=== PATIENT | male | born 1975 | race Caucasian/White ===

== ENCOUNTER 2019-11-27 09:14 | Emergency (ER) | payer SELFPAY ==
[~2019-11-27] VITALS: Ht 162.6 cm; Wt 85.7 kg
[2019-11-27 09:18] VITALS: BP 129/90
--- NOTE | 2019-11-27 09:26 | NUR ---
WAIT AT LOBBY. HANDED ON URINE CUP.
--- NOTE | 2019-11-27 10:05 | NUR ---
PT AMBULATED TO BED 8.
--- NOTE | 2019-11-27 10:11 | NUR ---
44 Y/O MALE C/O CHEST PAIN RADIATING TO LEFT SHOULDER THAT BEGAN THIS MORNING. PT STATES PAIN IS NO LONGER PRESENT, BUT HE DOES FEEL SLIGHTLY WEAK AND DIZZY. PT STATES PAIN WAS SHARP, 7/10 PAIN. DENIES ANY RECENT ALCOHOL OR DRUG USE. DENIES ANY N/V/D. LUNG SOUNDS ARE CLEAR IN BILAT LOBE. DENIES ANY SOB/COUGH/FEVER. AAOX4. AMBULATORY WITH STEADY GAIT. SKIN COOL/DRY. CAP REFILL <3. VSS. PMH: HTN NKA Addendum: 11/27/19 at 1016 by [email or web address] 44 Y/O MALE C/O CHEST PAIN RADIATING TO RIGHT SHOULDER THAT BEGAN THIS MORNING. PT STATES PAIN IS NO LONGER PRESENT, BUT HE DOES FEEL SLIGHTLY WEAK AND DIZZY. PT STATES PAIN WAS SHARP, 7/10 PAIN. DENIES ANY RECENT ALCOHOL OR DRUG USE. DENIES ANY N/V/D. LUNG SOUNDS ARE CLEAR IN BILAT LOBE. DENIES ANY SOB/COUGH/FEVER. AAOX4. AMBULATORY WITH STEADY GAIT. SKIN COOL/DRY. CAP REFILL <3. VSS. PMH: HTN NKA
[2019-11-27] MEDS ORDERED: LORA10TA19 PO (10:15)
[2019-11-27 10:53] LABS: BASOPHILS % (AUTO) 0.6 % (0.0-2.0); EOSINOPHILS # (AUTO) 0.2 K/uL (0-0.4); EOSINOPHILS % (AUTO) 2.8 % (0.0-4.0); HEMATOCRIT 46.6 % (36-52); HEMOGLOBIN 15.5 g/dL (12.0-18.0); LYMPHOCYTES # (AUTO) 1.8 K/uL (2.0-11.5); LYMPHOCYTES % (AUTO) 27.2 % (20.5-51.1); MEAN CORPUSCULAR HEMOGLOBIN 30 pg (27-31); MEAN CORPUSCULAR HGB CONC 33 g/dL (33-37); MEAN CORPUSCULAR VOLUME 90.4 fL (80-94); MONOCYTES # (AUTO) 0.5 K/uL (0.8-1.0); MONOCYTES % (AUTO) 7.9 % (1.7-9.3); NEUTROPHILS % (AUTO) 61.5 % (42.2-75.2); PLATELET COUNT (AUTO) 342 K/uL (140-450); RED BLOOD CELL COUNT(AUTO) 5.16 MIL/uL (4.20-6.10); RED CELL DISTRIBUTION WIDTH 14.2 % (11.6-13.7); WHITE BLOOD COUNT (AUTO) 6.5 K/uL (4.8-10.8)
[2019-11-27 11:12] LABS: ALBUMIN 3.6 g/dL (3.4-5.0); CARBON DIOXIDE 25.2 mmol/L (21-32); CREATININE 1.3 mg/dL (0.6-1.3); POTASSIUM 4.2 mmol/L (3.5-5.1); TOTAL BILIRUBIN 0.5 mg/dL (0.0-1.0)
[2019-11-27 12:49] VITALS: BP 132/89
--- NOTE | 2019-11-27 12:50 | NUR ---
Patient discharged with v/s stable. Written and verbal after care instructions given and explained. Patient verbalized understanding. Ambulatory with steady gait. All questions addressed prior to discharge. Advised to follow up with PMD.
== END 2019-11-27 12:50 | disposition home or self-care (01) ==
LOC: MED 09:14
DX: H81.399 Other peripheral vertigo, unspecified ear (principal); R55 Syncope and collapse
CPT/HCPCS: 36415; 71045; 80053; 83880; 84484; 85025; 93005; 99285; Q0092

== ENCOUNTER 2020-05-14 16:46 | Emergency (ER) | payer MEDICAID ==
[~2020-05-14] VITALS: Ht 165.1 cm; Wt 86.2 kg
[~2020-05-14 16:46] MED LIST: LORA10TA19 PO
[2020-05-14 17:49] VITALS: BP 125/69
--- NOTE | 2020-05-14 17:59 | NUR ---
C/O RIGHT PINKY FINGER PAIN. PT STATES 05/13 5PM HE RIPPED OFF HANGNAIL. 05/14 10AM STATES 01/14 PAIN FELT LIKE HE LOST CIRCULATION. (+) ROM, SENSATION HX: DENIES NKA
--- NOTE | 2020-05-14 18:01 | NUR ---
TDAP CONSENT OBTAINED FROM PT
[2020-05-14 18:03] VITALS: BP 125/69
--- NOTE | 2020-05-14 18:03 | NUR ---
Patient discharged with v/s stable. Written and verbal after care instructions given and explained. Patient alert, oriented and verbalized understanding of instructions. Ambulatory with steady gait. All questions addressed prior to discharge. ID band removed. Patient advised to follow up with PMD. Rx of IBUPROFEN, KEFLEX given. Patient educated on indication of medication including possible reaction and side effects. Opportunity to ask questions provided and answered.
== END 2020-05-14 18:03 | disposition home or self-care (01) ==
LOC: MED 16:46
DX: L03.011 Cellulitis of right finger (principal); I10 Essential (primary) hypertension; Z79.899 Other long term (current) drug therapy
CPT/HCPCS: 90471; 90715; 99283

== ENCOUNTER 2020-05-15 23:32 | Emergency (ER) | payer MEDICAID ==
[~2020-05-15] VITALS: Ht 165.1 cm; Wt 80.7 kg
[2020-05-15 23:50] VITALS: BP 130/90
--- NOTE | 2020-05-15 23:52 | NUR ---
TO LOBBY A/W BED AMBULATORY
--- NOTE | 2020-05-16 00:30 | NUR ---
SEEN AND EXAMINED BY CODI WITH ORDERS AND CARRIED OUT
[2020-05-16] MEDS ORDERED: LIDOCAINE/PRILOCAINE 2.5% 5 GM TUBE TP ONE (00:35)
[2020-05-16] MEDS ORDERED: IBUPROFEN 800 MG TAB PO ONE (00:35)
--- NOTE | 2020-05-16 01:10 | NUR ---
emla cream applied to affected finger
--- NOTE | 2020-05-16 01:50 | NUR ---
NON ADHERENT GAUZE PLACED ON PTS R PINKY FINGER THEN WRAPPED WITH KOBAND. PTS PMSC WNL.
[2020-05-16 01:52] VITALS: BP 130/90
--- NOTE | 2020-05-16 01:52 | NUR ---
Patient discharged with v/s stable. Written and verbal after care instructions given and explained. Patient alert, oriented and verbalized understanding of instructions. Ambulatory with steady gait. All questions addressed prior to discharge. ID band removed. Patient advised to follow up with PMD. Rx of BACTRIM DS given. Patient educated on indication of medication including possible reaction and side effects. Opportunity to ask questions provided and answered.
== END 2020-05-16 01:52 | disposition home or self-care (01) ==
LOC: MED 23:32
DX: L03.012 Cellulitis of left finger (principal); I10 Essential (primary) hypertension; Z79.899 Other long term (current) drug therapy
CPT/HCPCS: 99283

== ENCOUNTER 2020-09-23 01:44 | Emergency (ER) | payer MEDICAID, OTHER ==
[~2020-09-23] VITALS: Ht 165.1 cm; Wt 81.6 kg
[2020-09-23 01:58] VITALS: BP 123/84
--- NOTE | 2020-09-23 01:58 | NUR ---
TO BED AMBULATORY
--- NOTE | 2020-09-23 02:06 | NUR ---
PATIENT BIB SELF FOR C/O 9/10 NECK PAIN X 1 DAY. PATIENT REPORTS HE WOKE UP FEELING "STIFF." PATIENT REPORTS PAIN RADIATES TO RIGHT UPPER BACK. 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 PATIENT DENIES TAKING ANY OTC PAIN MEDICATIONS. DENIES N/V/D, FEVER, CHILLS, COUGH. PATIENT ALSO REPORTS "BUMP" UNDER HIS LEFT ARMPIT. UPON OBSERVATION, PATIENT NOTED WITH RED, PIMPLE LIKE BUMP WITH WHITE HEAD NOTED. SEE COMPLETE ASSESSMENT FOR FURTHER DETAILS. MED HX: HTN, HLD ALLERGIES: DENIES
--- NOTE | 2020-09-23 02:18 | NUR ---
ERMD AT BEDSIDE.
[2020-09-23] MEDS ORDERED: CYCLOBENZAPRINE 10 MG TAB PO ONE (02:20)
[2020-09-23] MEDS ORDERED: KETOROLAC 30 MG/ML VIAL IM ONE (02:20)
[2020-09-23] MEDS ORDERED: IBUP-2213 PO (02:33)
[2020-09-23] MEDS ORDERED: DICL1GEL19 TP (02:33)
[2020-09-23] MEDS ORDERED: CYCL-711 PO (02:33)
[2020-09-23 02:44] VITALS: BP 123/84
--- NOTE | 2020-09-23 02:44 | NUR ---
Patient discharged with v/s stable. Written and verbal after care instructions given and explained. Patient alert, oriented and verbalized understanding of instructions. Ambulatory with steady gait. All questions addressed prior to discharge. ID band removed. Patient advised to follow up with PMD. Rx of FLEXERIL, VOLTAREN, IBUPROFEN given. Patient educated on indication of medication including possible reaction and side effects. Opportunity to ask questions provided and answered.
== END 2020-09-23 02:44 | disposition home or self-care (01) ==
LOC: MED 01:44
DX: S16.1XXA Strain of muscle, fascia and tendon at neck level, initial encounter (principal); I10 Essential (primary) hypertension; E78.5 Hyperlipidemia, unspecified; Z79.899 Other long term (current) drug therapy; X58.XXXA Exposure to other specified factors, initial encounter; Y93.89 Activity, other specified; Y92.89 Other specified places as the place of occurrence of the external cause; Y99.8 Other external cause status
CPT/HCPCS: 96372; 99283; J1885

== ENCOUNTER 2020-09-26 04:20 | Emergency (ER) | payer MEDICAID ==
[~2020-09-26] VITALS: Ht 165.1 cm; Wt 81.6 kg
[~2020-09-26 04:20] MED LIST changes: +CYCL-711 PO; +DICL1GEL19 TP; +IBUP-2213 PO
[2020-09-26 04:27] VITALS: BP 133/95
--- NOTE | 2020-09-26 04:27 | NUR ---
TO BED AMBULATORY
--- NOTE | 2020-09-26 04:32 | NUR ---
41 y.o male presents to the ED with headache that started around 1300 today. pt reports taking motrin, Ematrex and still have unrelieved headache. pt reports it starts from the base of the neck and crept up to the right mormonism area of the head. 8/10 pain that feels like a constant ache. AAOx4. VSS. PMH: Headaches, hypertension, high cholesterol Allergies: NKA
--- NOTE | 2020-09-26 04:41 | NUR ---
ERMD at bedside for examination
--- NOTE | 2020-09-26 04:54 | NUR ---
pt to CT via wheelchair
--- NOTE | 2020-09-26 05:01 | NUR ---
pt back from CT
[2020-09-26] MEDS: diphenhydrAMINE 50 MG/ML VIAL IM ONE (06:05)
[2020-09-26] MEDS: PROCHLORPERAZINE 10 MG/2 ML VIAL IM ONE (06:05)
[2020-09-26] MEDS: KETOROLAC 30 MG/ML VIAL IM ONE (06:06)
[2020-09-26 06:14] VITALS: BP 124/79
--- NOTE | 2020-09-26 06:14 | NUR ---
Patient discharged with v/s stable. Written and verbal after care instructions given and explained. Patient verbalized understanding. Ambulatory with steady gait. ID band removed. All questions addressed prior to discharge. Advised to follow up with PMD.
== END 2020-09-26 06:12 | disposition home or self-care (01) ==
LOC: MED 04:20
DX: G43.909 Migraine, unspecified, not intractable, without status migrainosus (principal); I10 Essential (primary) hypertension; Z79.899 Other long term (current) drug therapy
CPT/HCPCS: 70450; 96372; 99284; J0780; J1200; J1885

== ENCOUNTER 2020-10-01 00:55 | Emergency (ER) | payer MEDICAID ==
[~2020-10-01] VITALS: Ht 165.1 cm; Wt 81.2 kg
[2020-10-01 01:04] VITALS: BP 149/94
--- NOTE | 2020-10-01 01:10 | NUR ---
RECEIVED IN BED 8 WITH C/O LEFT AXILLA PAIN X 2 DAYS, RAISED RED AREA NOTED. PT DENIES ANY DRAINAGE OR DISCHARGE FROM THIS SITE
[2020-10-01] MEDS ORDERED: CEPH-588 PO (02:14)
[2020-10-01] MEDS: IBUPROFEN 400 MG TAB PO ONE (02:32)
[2020-10-01] MEDS: cephALEXin 500 MG CAP PO ONE (02:32)
[2020-10-01 02:39] VITALS: BP 130/85
== END 2020-10-01 02:40 | disposition home or self-care (01) ==
LOC: MED 00:55
DX: L03.112 Cellulitis of left axilla (principal); I10 Essential (primary) hypertension; Z79.899 Other long term (current) drug therapy
CPT/HCPCS: 99283

== ENCOUNTER 2020-10-06 21:29 | Emergency (ER) | payer MEDICAID, SELFPAY ==
[~2020-10-06] VITALS: Ht 165.1 cm; Wt 81.6 kg
[~2020-10-06 21:29] MED LIST changes: +CEPH-588 PO
[2020-10-06 21:35] VITALS: BP 119/87
--- NOTE | 2020-10-06 21:36 | NUR ---
triaged and waiting in ER lobby.
--- NOTE | 2020-10-06 22:31 | NUR ---
DR. MATHEW WENT TO EVALUATE PT IN LOBBY. PT CALLED IN LOBBY AND OUTSIDE WITH NO ANSWER.
--- NOTE | 2020-10-06 22:47 | NUR ---
PT CALLED FOR SECOND TIME IN LOBBY AND OUTSIDE WITH NO ANSWER.
--- NOTE | 2020-10-06 22:49 | NUR ---
PATIENT LEFT WITHOUT BEING SEEN BY DR. MATHEW. NO FURTHER CARE PROVIDED FOR PATIENT.
== END 2020-10-06 22:49 | disposition left against medical advice (07) ==
LOC: MED 21:29
DX: R51.9 Headache, unspecified (principal); Z53.21 Procedure and treatment not carried out due to patient leaving prior to being seen by health care provider

== ENCOUNTER 2020-10-08 08:48 | Emergency (ER) | payer MEDICAID ==
[~2020-10-08] VITALS: Ht 165.1 cm; Wt 81.6 kg
[2020-10-08 08:48] VITALS: BP 137/89
[2020-10-08] MEDS ORDERED: KETOROLAC 30 MG/ML VIAL IM ONE (09:15)
[2020-10-08] MEDS ORDERED: LORazepam 2 MG/ML VIAL IM ONE (09:15)
[2020-10-08 11:04] VITALS: BP 117/77
== END 2020-10-08 11:04 | disposition home or self-care (01) ==
LOC: MED 08:48
DX: M54.9 Dorsalgia, unspecified (principal); R51.9 Headache, unspecified; I10 Essential (primary) hypertension; F15.10 Other stimulant abuse, uncomplicated
CPT/HCPCS: 71045; 96372; 99284; J1885; J2060

== ENCOUNTER 2020-11-07 03:25 | Emergency (ER) | payer MEDICAID ==
[~2020-11-07] VITALS: Ht 165.1 cm; Wt 81.2 kg
[2020-11-07 03:39] VITALS: BP 124/95
--- NOTE | 2020-11-07 03:39 | NUR ---
TO BED AMBULATORY
--- NOTE | 2020-11-07 03:40 | NUR ---
PT. IS A 41 Y/O MALE THAT CAME INTO ED WITH C/O OF PAIN IN BACK OF HEAD. PT. STATES THAT IT STARTED 3 DAYS AGO AND HAS "PROGRESSED WORSE." PT. RATES HIS PAIN AT A 10/10 ON THE PAIN SCALE AT THIS TIME. UPON ASSESSMENT, PT. LEFT SIDE BACK OF THE HEAD APPEARS TO HAVE AN ABSCESS WITH REDNESS AND NO DISCHARGE NOTED. DENIES N/V/D; SKIN IS PINK/WARM/DRY; AAOX4 WITH EVEN AND STEADY GAIT; HR EVEN AND REGULAR; PT DENIES ANY FEVER, CP, SOB, OR COUGH AT THIS TIME;VSS; PATIENT POSITIONED FOR COMFORT; HOB ELEVATED; BEDRAILS UP X2; BED DOWN. ER MD MADE AWARE OF PT STATUS. PMH: HYPERTENSION ALLERGIES: NKA
--- NOTE | 2020-11-07 03:45 | NUR ---
CODI SANCHEZ AT BEDSIDE FOR EXAMINATION.
[2020-11-07] MEDS ORDERED: LIDOCAINE MPF 1% 10 MG/ML VIAL INJ ONE (04:10)
[2020-11-07] MEDS ORDERED: ACET-8386 PO (04:45)
[2020-11-07] MEDS ORDERED: CEPH500C16 PO (04:45)
[2020-11-07] MEDS ORDERED: IBUP-2213 PO (04:45)
[2020-11-07 04:50] VITALS: BP 124/95
--- NOTE | 2020-11-07 04:50 | NUR ---
Patient discharged with v/s stable. Written and verbal after care instructions given and explained. Patient alert, oriented and verbalized understanding of instructions. Ambulatory with steady gait. All questions addressed prior to discharge. ID band removed. Patient advised to follow up with PMD. Rx of KEFLEX, HYDROCODONE/ACETAMINOPHEN, AND IBUPROFEN given. Patient educated on indication of medication including possible reaction and side effects. Opportunity to ask questions provided and answered.
== END 2020-11-07 04:50 | disposition home or self-care (01) ==
LOC: MED 03:25
DX: L02.811 Cutaneous abscess of head [any part, except face] (principal); I10 Essential (primary) hypertension; Z79.899 Other long term (current) drug therapy
CPT/HCPCS: 10060; 99283; J2001

== ENCOUNTER 2021-05-08 02:13 | Emergency (ER) | payer MEDICAID ==
[~2021-05-08] VITALS: Ht 172.7 cm; Wt 95.3 kg
[~2021-05-08 02:13] MED LIST changes: +ACET-8386 PO; +CEPH500C16 PO
[2021-05-08 02:21] VITALS: BP 122/78
[2021-05-08] MEDS ORDERED: NACL 0.9% 1,000 ML IV ONE (02:25)
[2021-05-08] MEDS ORDERED: ACETAMINOPHEN EXTRA STRENGTH 500 MG TAB PO ONE (02:25)
--- NOTE | 2021-05-08 02:40 | NUR ---
PT CALLED FROM INSIDE ER LOBBY, NO RESPONSE
--- NOTE | 2021-05-08 02:45 | NUR ---
PT CALLED A SECOND TIME FROM INSIDE ER LOBBY WELL OUTSIDE, NO RESPONSE
--- NOTE | 2021-05-08 02:50 | NUR ---
PT CALLED A THIRD TIME FROM INSIDE ER LOBBY WELL OUTSIDE, NO RESPONSE
--- NOTE | 2021-05-08 03:16 | NUR ---
PATIENT LEFT WITHOUT BEING SEEN BY DR. DELCID . NO FURTHER CARE PROVIDED FOR PATIENT.
--- NOTE | 2021-05-08 03:16 | NUR ---
called patient but no answer x3, left without being seen by physician.
== END 2021-05-08 02:40 | disposition left against medical advice (07) ==
LOC: MED 02:13
DX: R50.9 Fever, unspecified (principal); R51.9 Headache, unspecified; Z53.21 Procedure and treatment not carried out due to patient leaving prior to being seen by health care provider

== ENCOUNTER 2021-05-09 21:22 | Emergency (ER) | payer MEDICAID ==
[~2021-05-09] VITALS: Ht 165.1 cm; Wt 82.1 kg
[2021-05-09 21:29] VITALS: BP 107/63
--- NOTE | 2021-05-09 21:33 | NUR ---
PT AMBULATED TO LOBBY
--- NOTE | 2021-05-09 22:01 | NUR ---
41 Y/O M PRESENTS TO ED WITH C/O BACK PAIN x2 DAYS. NO FALL NOR INURY MEDHX- HTN NKA
[2021-05-10] MEDS ORDERED: KETOROLAC 60 MG/2 ML VIAL IM ONE (00:20)
[2021-05-10] MEDS ORDERED: ACET-8386 PO (00:25)
[2021-05-10] MEDS ORDERED: PRED20TA5 PO (00:51)
== END 2021-05-10 00:51 | disposition home or self-care (01) ==
LOC: MED 21:22
DX: M54.50 Low back pain, unspecified (principal); R05.9 Cough, unspecified; I10 Essential (primary) hypertension; Z79.899 Other long term (current) drug therapy
CPT/HCPCS: 96372; 99283; J1885

== ENCOUNTER 2021-05-12 06:12 | Emergency (ER) | payer MEDICAID ==
[~2021-05-12] VITALS: Ht 165.1 cm; Wt 83.2 kg
[~2021-05-12 06:12] MED LIST changes: +PRED20TA5 PO
[2021-05-12 06:19] VITALS: BP 110/57
--- NOTE | 2021-05-12 07:43 | NUR ---
novel and rock swabs collected and walked to lab.
--- NOTE | 2021-05-12 09:43 | NUR ---
KEROND made aware of pt COVID +. Pt not in lobby or tents, name called out several times. pt not seen in parking lot.
[2021-05-12] MEDS ORDERED: ALBU0.0912 IH (10:04)
[2021-05-12] MEDS ORDERED: LID5T TP (10:04)
[2021-05-12] MEDS ORDERED: AZIT250T4 PO (10:04)
--- NOTE | 2021-05-12 10:40 | NUR ---
PATIENT NOT LOCATED IN [facility] OR OUTSIDE, CONTACTED BY PERSONAL NUMBER, ADVISED OF PENDING MEDICATIONS AT PHARMACY. PATIENT MADE AWARE COVID + STATUS, EDUCATED TO RETURN FOR WORSENING SYMPTOMS.
== END 2021-05-12 10:40 | disposition home or self-care (01) ==
LOC: MED 06:12
DX: U07.1 COVID-19 (principal); I10 Essential (primary) hypertension; Z79.899 Other long term (current) drug therapy
CPT/HCPCS: 87426; 99283; U0003